=== PATIENT | female | born 1950 | race Caucasian/White ===

== ENCOUNTER 2018-07-19 07:46 | Outpatient (CLI) | payer MEDICARE, BC ==
[~2018-07-19] VITALS: Ht 152.4 cm; Wt 80.9 kg
--- NOTE | ~2018-07-19 | OP ---
PATIENT NAME: GUILHERME CRUZ MEDICAL RECORD: [id number] :50 LOCATION:D.CAT ADMISSION DATE: SURGEON: FRANCISCO ROLAND MD DATE OF OPERATION: 07/19/2018 PROCEDURES: 1. Left heart catheterization. 2. Selective coronary angiography. 3. Left ventriculogram. INDICATION: Chest pain compatible with angina. PROCEDURE IN DETAIL: After informed consent was obtained and after a detailed description of risks, benefits as well as alternative therapies, the patient elected to proceed with angiogram and heart catheterization. The right radial area was prepped and draped in normal sterile fashion. Right radial artery was cannulated via modified Seldinger technique with placement of 5-Persian sheath. All catheters exchanged through this sheath. FINDINGS: Left ventriculogram was performed in standard 30-degree DIAS view, reveals good cardiac wall motion throughout all segments. Overall ejection fraction estimated 60%. SELECTIVE CORONARY ANGIOGRAPHY: Left main, left anterior descending, left circumflex, right coronary artery are all smooth-walled vessels with no angiographic evidence of coronary artery disease. OVERALL IMPRESSION: 1. No angiographic evidence of coronary artery disease. 2. Normal left heart pressures. 3. Normal left ventricular systolic function. Chest pain is noncardiac in etiology. No further cardiac workup needs to be ascertained. TRANSINT:[id number] Voice Confirmation ID: [id number] DOCUMENT ID: [id number] FRANCISCO ROLAND MD at 0923 CC: [id number] DICTATION DATE: 07/19/18 1056 FENDER FINISHER: 07/19/18 1150 DEP CLI 07/19/18 [place] [id number] [place] [address]
--- NOTE | ~2018-07-19 | HP ---
PATIENT: GUILHERME RICHARDSON MEDICAL RECORD: [id number] ACCOUNT: [id number] LOCATION:ANITA : 50 ADMISSION DATE: 07/19/18 PCP: VANI SCOTT MD HISTORY AND PHYSICAL EXAMINATION DIAGNOSES: 1. Chest pain compatible with angina. 2. Abnormal nuclear stress test. 3. Hypertension. 4. Hyperlipidemia. HISTORY OF PRESENT ILLNESS: Ms. Richardson presents with chest pain compatible with angina. Nuclear stress test suggests anterior ischemia. She is now brought for cardiac catheterization. REVIEW OF SYSTEMS: The patient reports easy bruising but reports no swollen glands. The patient reports no fever, no night sweats, no significant weight gain, no significant weight loss. No significant exercise tolerance. The patient reports no dry eyes, no irritation, no vision change. Patient reports no difficulty hearing and no ear pain. Patient reports no frequent nose bleeds or nose and sinus problems. Patient reports on arm pain on exertion. No shortness of breath while lying down. No history of heart murmur. Patient reports no cough, no wheezing or coughing up blood. Patient reports no abdominal pain, no vomiting. Normal appetite. No diarrhea and not vomiting blood. No nausea and no constipation. Patient reports no incontinence. No difficulty urinating. No hematuria. No increased frequency. Patient reports no muscle aches. No weakness, no arthralgias, no back pain. No swelling of the extremities. Patient reports no abnormal mole, no jaundice, no rashes. Reports no loss of consciousness. No weakness and no numbness. No seizures, dizziness, or headaches. The patient reports no depression, no sleep disturbance, feeling safe in a relationship and no alcohol abuse. Patient reports on fatigue. Reports no runny nose or sinus pressure. No itching, no hives, and no frequent sneezing. PHYSICAL EXAMINATION: GENERAL APPEARANCE: Well-nourished, well-developed, appears stated age. Level of distress, comfortable. PSYCHIATRIC: Mental status, alert, normal affect. Orientation, oriented to time, place and person. EYES: Lids and conjunctiva, noninjected. No discharge, no pallor. ENT: Lips, teeth, gums, normal dentition. Oropharynx, no cyanosis, no pallor. NECK: Carotid arteries, bilateral normal upstroke, no bruits, no thrills. JUGULAR VEINS: No jugular venous pressure or distention. CERVICAL LYMPH NODES: Nontender, nonenlarged. THYROID: Not enlarged. Nontender. No nodules. LUNGS: Respiratory effort, unlabored. CHEST: Normal curvature. No thoracic deformity. No chest wall tenderness. Percussion, resonant. Auscultation, clear. No wheezes, no rales, no rhonchi. CARDIOVASCULAR: Precordial exam, nondisplaced. No heaves or pericardial thrills. Rate and rhythm, regular. Heart sounds, normal S1, normal S2. No S3, no gallop, no rub. Systolic murmur, not heard. Diastolic murmur, not heard. EXTREMITIES: No cyanosis, no edema. Peripheral pulses, full and equal in all extremities, except as noted. No bruits appreciated. ABDOMEN: Soft, nondistended. Normal aorta. No bruit. Nontender. No masses. Liver, nontender, no hepatomegaly. Spleen, nontender, no splenomegaly. HISTORY AND PHYSICAL [id number] GUILHERME RICHARDSON MUSCULOSKELETAL: No joint tenderness. No joint swelling. No erythema. NEUROLOGICAL: Normal gait, normal strength, normal tone. SKIN: Warm and dry. OVERALL IMPRESSION: Chest pain compatible with angina with abnormal nuclear stress test. We will proceed with coronary angiography. Further care depends upon findings of the angiography. TRANSINT:[id number] Voice Confirmation ID: [id number] DOCUMENT ID: [id number] FRANCISCO ROLAND MD at 0923 CC: [id number] DICTATION DATE: 07/19/18 1055 LOOM STARTER: 07/19/18 1105 DEP CLI 07/19/18 [place] [id number] [place] [id number]
--- NOTE | ~2018-07-19 | HEMODYNAMI ---
PATIENT:GUILHERME CRUZ MEDICAL RECORD: [id number] : 50 LOCATION:DGildaCAT ADMISSION DATE: 07/19/18 Generatedon:07/19/201810:58 Patient name: GUILHERME CRUZ Patient #: [id number] SSN: DO B: 1950 Date of study: 07/19/2018 Page: Of Hemodynamic Procedure Report Patient Data Patient Demographics Procedure consent was obtained First Name: GUILHERME Gender: Female Last Name: ANTHONY : 1950 Patient #: [id number] Age: 67 year(s) Race: Unknown Additional ID: [id number] Contact details [address]: [address] [place] [address] [place] State: [place] City: [place] Zip code: [address] Admission Admission Data Admission Date: 07/19/2018 Admission Time: 7:46 Admit Source: Other Procedure Procedure Types Cath Procedure Diagnostic Procedure LHC LHC w/Coronaries Procedure Description Procedure Date Procedure Date: 07/19/2018 Procedure Start Time: 10:51 Procedure End Time: 10:57 Procedure Staff Name Function Antoine Muir MD Performing Physician Kale Bacon RT Monitor Alli Hollins RN Nurse Renaldo Osman RT Scrub Procedure Data Cath Procedure Fluoroscopy Diagnostic fluoroscopy Total fluoroscopy Time: 0.9 time: 0.9 min min Diagnostic fluoroscopy Total fluoroscopy dose: dose: 110.9 mGy 110.9 mGy Contrast Material Contrast Material Type Amount (ml) Isovue 300 42 Entry Location Entry Primary Successful Side Size Upsize Upsize Entry Closure Moore ccessful Closure Location (Fr) 1 (Fr) 2 (Fr) Remarks Device Remarks Radial Right 6 Fr Mechanical artery Short Compression Diagnostic catheters Device Type Used For End Catheter Placement DIAGNOSTIC Dundee 110cm 5 LV Angiography Fr catheter (148001) Procedure Complications No complications Procedure Medications Medication Administration Route Dosage Oxygen etCO2 Nasal cannula 2 l/min Heparin Flush Bag added to field 2 bags (1000units/500ml NS) 0.9% NaCl I.V. 100 ml/hr Radial Cocktail added to field 1 syringe (Verapomil 2mg/Nitro 400mcg/Heparin 1500units) Fentanyl I.V. 50 mcg Versed I.V. 1 mg Radial Cocktail I.A. 1 syringe (Verapomil 2mg/Nitro 400mcg/Heparin 1500units) Fentanyl I.V. 50 mcg Versed I.V. 1 mg Hemodynamics Rest Pre Cath Intra NCS Post Cath Vital Signs Time Heart Resp SPO2 etCO2 NIBP (mmHg) Rhythm Pain Sedation Rate (ipm) (%) (mmHg) Status Level (bpm) 10:28:53 67 17 100 0 131/71(100) NSR 0 (11) 10(A) , No pain 10:34:17 62 16 100 33.2 120/63(85) NSR 0 (11) 10(A) , No pain 10:38:33 63 17 92 35.5 88/50(71) NSR 0 (11) 10(A) , No pain 10:42:49 64 16 100 8.3 92/51(66) NSR 0 (11) 10(A) , No pain 10:47:07 65 16 99 13.6 94/49(70) NSR 0 (11) 10(A) , No pain 10:51:33 65 17 98 18.8 77/35(49) NSR 0 (11) 10(A) , No pain 10:55:50 70 19 98 21.1 81/43(67) NSR 0 (11) 10(A) , No pain 10:57:52 86 15 100 15.1 85/44(62) NSR 0 (11) 10(A) , No pain Medications Time Medication Route Dose Verified Delivered Reason Notes Effectiveness by by 10:24:52 Oxygen etCO2 2 l/min Antoine Carson Per Nasal Isadora Hollins RN physician cannula 10:25:00 Heparin Flush added 2 bags Antoine Carson used for Bag to Isadora Hollins RN procedure (1000units/500ml field NS) 10:25:09 0.9% NaCl I.V. 100 Antoine Carson Per ml/hr Isadora Hollins RN physician 10:25:17 Radial Cocktail added 1 Antoine Carson used for (Verapomil to syringe Isadora Hollins RN procedure 2mg/Nitro field 400mcg/Heparin 1500units) 10:48:38 Fentanyl I.V. 50 mcg Antoine Carson for sedation Isadora Hollins RN 10:48:45 Versed I.V. 1 mg Antoine Carson for sedation Isadora Hollins RN 10:50:25 Radial Cocktail I.A. 1 Antoine Schultz for (Verapomil syringe Isadora Muir MD vasodilation 2mg/Nitro 400mcg/Heparin 1500units) 10:52:15 Fentanyl I.V. 50 mcg Antoine Schultz for sedation Isadora Muir MD 10:52:21 Versed I.V. 1 mg Antoine Schultz for sedation Isadora Muir MD Procedure Log Time Note 10:00:26 Renaldo Osman RT(R) sent for patient. Start room use. 10:14:57 Admit Source: Other 10:15:20 ACC Patient presents with Stable Angina CCS Anginal Class 2--Slight limitation of ordinary activity. 10:15:24 Diagnostic Cath status Elective 10:15:28 Time tracking: Regular hours (M-F 7:00 - 5:00) 10:15:33 Plan of Care:Hemodynamics will remain stable., Cardiac rhythm will remain stable., Comfort level will be maintained., Respiratory function will remain adequate., Patient/ family verbilizes understanding of procedure., Procedure tolerated without complication., Recovers from procedure without complications.. 10:24:52 Oxygen 2 l/min etCO2 Nasal cannula was administered by Alli Hollins RN; Per physician; 10:25:00 Heparin Flush Bag (1000units/500ml NS) 2 bags added to field was administered by Alli Hollins RN; used for procedure; 10:25:09 0.9% NaCl 100 ml/hr I.V. was administered by Alli Hollins RN; Per physician; 10:25:17 Radial Cocktail (Verapomil 2mg/Nitro 400mcg/Heparin 1500units) 1 syringe added to field was administered by Alli Hollins RN; used for procedure; 10:26:44 Patient received from Pre/Post Procedure Room to CCL 3 Alert and oriented. Tansferred to table in Supine position. 10:26:45 Warm blankets applied, and demarco hugger turned on for patient comfort. 10::45 Correct patient and procedure confirmed by team. 10:26:47 Signed procedure consent form obtained from patient. 10::47 ECG and BP/O2 sat monitors applied to patient. 10:27:36 Vital chart was started 10::42 Rhythm: sinus rhythm 10::44 Full Disclosure recording started 10::47 H&P Date Dictated: 07/19/2018 New H&P dictated by physician.. 10:28:49 Pre-procedure instructions explained to patient. 10:28:49 Pre-op teaching completed and patient verbalized understanding. 10:28:55 Family in waiting room. 10:28:56 Patient NPO since Midnight. 10:28:58 Is the patient allergic to Iodine/contrast media? No. 10:29:01 Is patient on blood thinner?No 10:29:03 Patient diabetic? No. 10:29:06 Previous problem with sedation/anesthesia? No ? 10:29:11 Snore? Yes 10:29:12 Sleep apnea? No 10:29:21 Deviated septum? No 10:29:22 Opens mouth fully? Yes 10:29:23 Sticks out tongue? Yes 10:29:26 Airway obstruction? No ? 10:29:28 Dentures? No ? 10:29:35 Pre procedure: right dorsailis pedis pulse 1+ Palpable, but thready & weak; easily obliterated 10:29:37 Modified Donald's test Ulnar < 7 seconds 10:29:39 Patient pain scale 0/10 ?. 10:29:57 IV patent on arrival in left forearm with 0.9% NaCl at KVO. 10:29:59 Lab results completed and on chart. 10:34:37 Right Radial & Right Groin area was prepped with chlora-prep and draped in sterile fashion 10:34:38 Alarms reviewed by R. N. 10:34:38 Sharps counted by scrub and verified by R.N. 10:38:29 Physician paged 10:41:16 Zero performed for pressure channel P1 10:47:16 Physician arrived 10:47:17 --------ALL STOP TIME OUT------ 10:47:19 Final Timeout: patient, procedure, and site verified with staff and physician. All members of the team are in agreement. 10:47:22 Right Radial & Right Groin site verified by team. 10:47:24 Physical assessment completed. ASA score P 2 - A patient with mild systemic disease as per Antoine Muir MD. 10:47:28 Sedation plan: IV Moderate Sedation Medication:Versed, Fentanyl 10:48:38 Fentanyl 50 mcg I.V. was administered by Alli Hollins RN; for sedation; 10:48:45 Versed 1 mg I.V. was administered by Alli Hollins RN; for sedation; 10:50:25 Radial Cocktail (Verapomil 2mg/Nitro 400mcg/Heparin 1500units) 1 syringe I.A. was administered by Antoine Muir MD; for vasodilation; 10:50:28 Use device set Radial Dx or PCI 10:50:29 ACIST Syringe (67453) opened to sterile field. 10:50:29 Medline Cath Pack ([id number]) opened to sterile field. 10:50:30 Bag Decanter (2002S) opened to sterile field. 10:50:30 DIAGNOSTIC WIRE .035 260cm J wire (696928) opened to sterile field. 10:50:32 ACIST Hand Control (47124) opened to sterile field. 10:50:32 ACIST Manifold (91941) opened to sterile field. 10:50:32 Tegaderm 4 x 4 (1626W) opened to sterile field. 10:50:38 TR BAND Standard ([id number]) opened to sterile field. 10:50:44 SHEATH 6Fr Prelude Radial ([id number]) opened to sterile field. 10:50:46 Procedure started. 10:51:15 Local anesthetic to right radial artery with Lidocaine 2% by Antoine Muir MD.INITIAL ACCESS ONLY 10:51:24 A 6 Fr Short sheath was inserted into the Right Radial artery 10:51:31 A DIAGNOSTIC Dundee 110cm 5 Fr catheter ([id number]) was advanced over the wire and used for LV Angiography. 10:51:34 LV angiography performed. 10:51:36 LV gram done using DIAS 10:51:48 EF : 55 % 10:51:50 LCA angiography performed. 10:52:15 Fentanyl 50 mcg I.V. was administered by Antoine Muir MD; for sedation; 10:52:21 Versed 1 mg I.V. was administered by Antoine Muir MD; for sedation; 10:52:50 RCA angiography performed. 10:52:52 Catheter removed. 10:53:04 Sheath removed intact; hemostasis achieved with Mechanical Compression to the Right Radial artery. 10:53:12 Procedure ended.(Physican Out) 10:53:20 Fluoroscopy time 00.90 minutes. 10:53:27 Fluoroscopy dose: 110.9 mGy 10:53:27 Flurop Dose total: 110.9 10:53:32 Contrast amount:Isovue 300 42ml. 10:53:33 Sharps counted by scrub and verified by R.N. 10:54:03 TR band inflated with 10cc of air. 10:54:04 Insertion/operative site no bleeding no hematoma. 10:54:13 Post right radial artery:stable 10:54:14 Post Procedure Pulses reassessed and unchanged 10:54:19 Post procedure rhythm: sinus rhythm 10:54:21 Post procedure instruction explained to patient.Patient verbalizes understanding. 10:54:25 Procedure and supply charges have been captured, reviewed, submitted and are correct. 10:55:04 Procedure Complication : No complications 10:56:58 Vital chart was stopped 10:56:58 See physician's report for complete and final results. 10:57:00 Report given to Pre/Post Procedure Room. 10:57:04 Patient transfered to Pre/Post Procedure Room with Stretcher. 10:57:06 Procedure ended. 10:57:06 Full Disclosure recording stopped 10:57:56 End room use (Document Last) Device Usage Item Name Manufacture Quantity Catalog Number Hospital Part Current M inimal Lot# / Charge Number Stock Stock Serial# Code ACIST Syringe Acist 1 89668 [id number] 696001 746598 2 0 (94569) [employer] Medline Cath Cardinal 1 [id number] 088335 55197 262526 5 Pack Health ([id number]) Bag Decanter Microtek 1 2001S 538638 92322 099733 5 () [employer] Inc. DIAGNOSTIC WIRE St Vitaliy 1 493013 855191 409598 964640 3 0 .035 260cm J wire (826131) ACIST Hand Acist 1 26116 019503 440804 553813 5 Control (63821) [employer] ACIST Manifold Acist 1 98243 978309 345108 328251 5 (42153) [employer] Tegaderm 4 x 4 3M 1 1626W 558072 662363 860833 5 (1626W) TR BAND Terumo 1 [id number] 508560 884498 598761 4 0 Standard ([id number]) SHEATH 6Fr Merit 1 [id number] 998031 072374 089768 5 Prelude Radial Medical ([id number]) DIAGNOSTIC Terumo 1 48-3881 968182 504993 823570 5 [place] 110cm 5 Fr catheter (680228) Signature Audit [place] Stage Time Signature Unsigned Intra-Procedure 07/19/2018 Kale Bacon RT(R) 10:58:18 AM Signatures Monitor : Kale Bacon RT Signature : Date : Time : [address] [id number]
[2018-07-19] MEDS ORDERED: LEVOTHYROXINE75 MCG PO (08:00)
[2018-07-19] MEDS ORDERED: WELLBUTRIN SR150 MG PO (08:01)
[2018-07-19] MEDS ORDERED: LISINOPRIL10 MG PO (08:01)
[2018-07-19] MEDS ORDERED: ZIAC 5-6.25 MG1 TAB PO (08:01)
[2018-07-19] MEDS ORDERED: OMEPRAZOLE20 M1 PO (08:02)
[2018-07-19] MEDS ORDERED: VOLTAREN75 MG PO (08:02)
[2018-07-19] MEDS ORDERED: CRESTOR10 MG PO (08:03)
[2018-07-19] MEDS ORDERED: ZOLOFT50 MG PO (08:03)
[2018-07-19] MEDS ORDERED: K-TAB10 MEQ PO (08:04)
[2018-07-19 08:15] VITALS: BP 129/67; Ht 152.4 cm; Wt 80.9 kg
[2018-07-19 08:30] LABS: BASOPHILS 0.1 % (0-2); EOSINOPHILS 5.1 % (0-7); HEMATOCRIT 40.8 % (36.0-48.0); HEMOGLOBIN 13.4 g/dL (12-16); IMMATURE GRANULOCYTES 0.3 % (0-5); LYMPHOCYTES 15.2 % (15-50); MCH 30.5 pg (26.0-34.0); MCHC 32.8 g/dL (31.0-37.0); MCV 92.9 fL (80.0-100.0); MONOCYTES 6.1 % (2-11); NEUTROPHILS 73.2 % (40-80); PLATELET COUNT 248 10x3/uL (130-400); RBC 4.39 10x6/uL (4.00-5.40); WBC 7.5 10x3/uL (4.8-10.8)
[2018-07-19 08:40] LABS: CALC OSMOLALITY 283 mosm/kg (275-300); CALCIUM 8.4 mg/dL (8.5-10.1); CARBON DIOXIDE 24.9 mmol/L (21.0-32.0); CHLORIDE - SERUM 107 mmol/L (98-107); CREATININE - SERUM 0.8 mg/dL (0.6-1.3); GLUCOSE 100 mg/dL (74-106); POTASSIUM - SERUM 3.8 mmol/L (3.5-5.1); SODIUM 142 mmol/L (136-145); UREA NITROGEN 16 mg/dL (7-18); eGFR NON AFRICAN AMERICAN 76 mL/min (90-120)
== END 2018-07-19 13:10 | disposition home or self-care (01) ==
LOC: D.CATH 07:46
PROVIDERS: Internal Medicine Interventional Cardiology
DX: R07.89 Other chest pain (principal); I10 Essential (primary) hypertension; E78.5 Hyperlipidemia, unspecified; R94.39 Abnormal result of other cardiovascular function study; Z01.812 Encounter for preprocedural laboratory examination